=== PATIENT | female | born 1985 | race Caucasian/White ===

== ENCOUNTER → 2016-11-19 | Day surgery (SDC) | payer BC ==
[~2016-11-19] VITALS: Ht 172.7 cm; Wt 78.9 kg
--- NOTE | ~2016-11-19 | O ---
[place], [place] OPERATIVE NOTE NAME: INNA BURKETT UNIT #: [id number] ROOM: DOCTOR: NORMA TREJO MD BIRTHDATE: [birth year] DOS: INDICATIONS: A 31-year-old patient who presented with status post cholecystectomy, continuation on abnormal LFTs and positive cholangiogram intraoperatively. The patient with nausea, status post cholecystectomy yesterday. PROCEDURE: Today's procedure part of investigation is ERCP plus papillotomy plus balloon sweep and extraction of common duct stone plus common duct stent placement. PREMEDICATIONS: Versed and Diprivan. SCOPE: Olympus side-viewing duodenoscope. REPORT: After putting the patient in the left lateral position and after application of lubricant to the scope, the scope was introduced indirectly advanced through the length of esophagus into gastric pouch into duodenal bulb. Papilla of Vater was defined. Selective cannulization of common duct was undertaken. Opacified guidewire was introduced in the left hepatic radicles and floating stone was identified. The stump of cholecystectomy was noticed. There is no leakage. At this stage, papillotomy was performed at 1 o'clock position and extended to the appropriate size for this stone and a balloon size 12 was introduced into the proximal common hepatic duct and orally pulled and mulberry stone was extracted. Photographic series obtained. At this stage, a stent size 10 x 5 was advanced over the guidewire and deployed into common duct. Radiologic and photographic documentations obtained and the patient extubated, tolerated procedure well. IMPRESSION: Choledocholithiasis extraction, status post endoscopic retrograde cholangiopancreatography, status post papillotomy, status post balloon sweep of common duct, status post common duct stent. PLAN AND DISCUSSION: Follow up with you in office. LFTs in 1 week and today to stay on ice cream, milk shake diet and advancing diet from tomorrow. No aspirin or aspirin products or no anticoagulation for 3 days. Site of the papillotomy was inspected. There is no active bleeding; however, spray of epinephrine and ____ done at the papillotomy tube to test for the blood oozing. There was no evidence of oozing. [place], [place] OPERATIVE NOTE NAME: INNA BURKETT UNIT #: [id number] ROOM: DOCTOR: NORMA TREJO MD BIRTHDATE: [birth year] NORMA TREJO MD CM:[place]:OPERATIVE NOTE 1126 01 NORMA TREJO MD 11/19/16 120 interface
[2016-11-19 08:45] VITALS: BP 109/62
[2016-11-19 11:41] VITALS: BP 117/64
[2016-11-19 11:43] VITALS: BP 119/69
[2016-11-19 11:58] VITALS: BP 115/72
[2016-11-19 12:40] VITALS: BP 115/72
== END | disposition home or self-care (01) ==
LOC: SDC 08:28
DX: K80.50 Calculus of bile duct without cholangitis or cholecystitis without obstruction (principal); R94.5 Abnormal results of liver function studies; Z98.890 Other specified postprocedural states; Z79.899 Other long term (current) drug therapy

== ENCOUNTER → 2017-03-23 | Day surgery (SDC) | payer BC ==
[~2017-03-23] VITALS: Ht 172.7 cm; Wt 81.6 kg
--- NOTE | ~2017-03-23 | O ---
[place], [place] OPERATIVE NOTE NAME: INNA BURKETT UNIT #: [id number] ROOM: DOCTOR: NORMA TREJO MD BIRTHDATE: [birth year] DOS: 03/23/2017 HISTORY OF PRESENT ILLNESS: A 31-year-old patient who presented with a chief complaint of abdominal pain status post right upper quadrant pain, history of previous cholecystectomy, history of status post ERCP, stent placement. FAMILY HISTORY: Noncontributory. ALLERGIES: No known medication. PAST MEDICAL HISTORY: Unremarkable. SOCIAL HISTORY: Nonsmoker, nonalcohol consumer. PROCEDURE: Today's procedure part of investigation is ERCP plus papillotomy. PREMEDICATION: Versed and Diprivan. SCOPE: Olympus side viewing duodenum scope. REPORT: After putting the patient in left lateral position and application of lubricant to the scope, the scope was introduced. Thereafter, under direct visualization, advanced through the length of esophagus without difficulty into gastric pouch into duodenal bulb. Stent in common duct was identified, snared and orally extracted. At this stage, the patient was rescoped and papillotome was introduced in the common duct. Selective cannulization was undertaken. Hepatic radicles identified. No bile like duct obstruction seen. The patient was gradually extubated after removal of instrumentation. Air was suctioned out. She tolerated the procedure well. IMPRESSION: Normal. ERCP, status post removal of common duct stent. We will see her clinical response. Thank you very much indeed. [place], [place] OPERATIVE NOTE NAME: INNA BURKETT UNIT #: [id number] ROOM: DOCTOR: NORMA TREJO MD BIRTHDATE: [birth year] NORMA TREJO MD CM:[facility]:OPERATIVE NOTE [id number] NORMA TREJO MD 03/23/17 1254 interface
[2017-03-23 10:05] VITALS: BP 118/78
[2017-03-23 11:47] VITALS: BP 122/47
[2017-03-23 12:02] VITALS: BP 122/58
[2017-03-23 12:17] VITALS: BP 136/76
== END | disposition home or self-care (01) ==
LOC: SDC 03-18 12:30
DX: R10.11 Right upper quadrant pain (principal); Z90.49 Acquired absence of other specified parts of digestive tract